=== PATIENT | male | born 1955 | race Caucasian/White ===

== ENCOUNTER → 2017-03-04 | Outpatient (CLI) | payer OTHER ==
[~2017-03-04] MED LIST: FINA5TAB4 PO; FLM4 PO; LOSA1TAB38 PO
[2017-03-04 12:23] LABS: BASO % 0.4 %; BASO ABS # 0.04 K/uL (0-0.2); COMPLETE YES; EOS % 1.4 %; HEMATOCRIT 42.7 % (42-52); IG% 0.1 %; LYMPH % 34.1 %; LYMPH ABS # 3.37 K/uL (1.2-3.4); MEAN CORPUSCULAR HEMOGLOBIN 31.4 pg (25-34); MEAN CORPUSCULAR HGB CONC 32.3 g/dl (32-36); MEAN PLATELET VOLUME 10.3 fL (7.4-10.4); MONO % 11.7 %; NEUT % 52.3 %; PLATELET COUNT 371 K/uL (130-400); WHITE BLOOD COUNT 9.89 K/uL (4.8-10.8)
[2017-03-04 12:25] LABS: ALT/SGPT 20 U/L (12-78); BLOOD UREA NITROGEN 17 mg/dl (7-18); BUN/CREATININE RATIO 19.6 (10-20); CALCIUM 8.8 mg/dl (8.5-10.1); CARBON DIOXIDE 28 mmol/L (21-32); CHLORIDE 108 mmol/L (98-107); CHOLESTEROL 188 mg/dl (0-200); CREATININE 0.84 mg/dl (0.60-1.40); GLUCOSE 93 mg/dl (70-99); SODIUM 141 mmol/L (136-145); TRIGLYCERIDES 89 mg/dl (0-150); VERY LOW DENSITY LIPOPROT CALC 18 mg/dl
[2017-03-04 12:29] LABS: ALB/GLOB RATIO 1.1 (0.9-2); ALKALINE PHOSPHATASE 77 U/L (45-117); AST/SGOT 15 U/L (15-37); CHOLESTEROL/HDL RATIO 3.5; HDL CHOLESTEROL 53 mg/dl; LDL CHOLESTEROL CALCULATED 117 mg/dl
== END | disposition home or self-care (01) ==
LOC: C.LABBFT 07:36
PROVIDERS: ATTEND Internal Medicine
DX: E78.5 Hyperlipidemia, unspecified (principal)

== ENCOUNTER → 2017-10-07 | Outpatient (CLI) | payer OTHER ==
[2017-10-07 12:37] LABS: BASO % 0.9 %; BASO ABS # 0.07 K/uL (0-0.2); COMPLETE YES; EOS % 2.4 %; HEMATOCRIT 44.7 % (42-52); IG% 0.3 %; LYMPH % 36.2 %; LYMPH ABS # 2.81 K/uL (1.2-3.4); MEAN CELL VOLUME 97.6 fL (80-100); MEAN CORPUSCULAR HEMOGLOBIN 31.4 pg (25-34); MEAN CORPUSCULAR HGB CONC 32.2 g/dl (32-36); MEAN PLATELET VOLUME 9.9 fL (7.4-10.4); MONO % 10.2 %; PLATELET COUNT 367 K/uL (130-400); RED BLOOD COUNT 4.58 M/uL (4.7-6.1); WHITE BLOOD COUNT 7.77 K/uL (4.8-10.8)
[2017-10-07 13:07] LABS: ALT/SGPT 20 U/L (12-78); AST/SGOT 11 U/L (15-37); BLOOD UREA NITROGEN 13 mg/dl (7-18); BUN/CREATININE RATIO 16.6 (10-20); CALCIUM 8.7 mg/dl (8.5-10.1); CARBON DIOXIDE 25 mmol/L (21-32); CHLORIDE 106 mmol/L (98-107); GLUCOSE 98 mg/dl (70-99); HDL CHOLESTEROL 63 mg/dl; POTASSIUM 4.7 mmol/L (3.5-5.1); SODIUM 141 mmol/L (136-145)
[2017-10-07 13:12] LABS: ALKALINE PHOSPHATASE 86 U/L (45-117); CHOLESTEROL 188 mg/dl (0-200); LDL CHOLESTEROL CALCULATED 111 mg/dl; PROSTATE SPECIFIC ANTIGEN 0.821 ng/ml (0.000-4.000); TRIGLYCERIDES 72 mg/dl (0-150); VERY LOW DENSITY LIPOPROT CALC 14 mg/dl
== END | disposition home or self-care (01) ==
LOC: C.LABBFT 07:05
PROVIDERS: ATTEND Internal Medicine
DX: I10 Essential (primary) hypertension (principal); D64.9 Anemia, unspecified; Z12.5 Encounter for screening for malignant neoplasm of prostate

== ENCOUNTER → 2018-03-13 | Outpatient (CLI) | payer OTHER ==
[2018-03-13 12:20] LABS: BASO % 0.4 %; BASO ABS # 0.04 K/uL (0-0.2); EOS % 1.8 %; HEMATOCRIT 41.2 % (42-52); HEMOGLOBIN 13.6 g/dL (14.0-18.0); IG# 0.02 K/uL (0.00-0.02); LYMPH % 32.5 %; LYMPH ABS # 3.52 K/uL (1.2-3.4); MEAN CELL VOLUME 96.5 fL (80-100); MEAN CORPUSCULAR HEMOGLOBIN 31.9 pg (25-34); MEAN PLATELET VOLUME 10.1 fL (7.4-10.4); MONO % 9.6 %; MONO ABS # 1.04 K/uL (0.11-0.59); NEUT % 55.5 %; PLATELET COUNT 370 K/uL (130-400); RED CELL DISTRIBUTION WIDTH CV 13.7 % (11.5-14.5); RED CELL DISTRIBUTION WIDTH SD 48.6 fL (36.4-46.3); WHITE BLOOD COUNT 10.82 K/uL (4.8-10.8)
[2018-03-13 12:46] LABS: ALBUMIN 3.3 gm/dl (3.4-5.0); ALT/SGPT 20 U/L (12-78); AST/SGOT 16 U/L (15-37); BLOOD UREA NITROGEN 16 mg/dl (7-18); CALCIUM 8.9 mg/dl (8.5-10.1); CARBON DIOXIDE 29 mmol/L (21-32); GLUCOSE 97 mg/dl (70-99); POTASSIUM 4.9 mmol/L (3.5-5.1); SODIUM 139 mmol/L (136-145)
[2018-03-13 12:47] LABS: ALKALINE PHOSPHATASE 81 U/L (45-117); CHOLESTEROL 187 mg/dl (0-200); LDL CHOLESTEROL CALCULATED 120 mg/dl; TOTAL PROTEIN 6.6 gm/dl (6.4-8.2)
== END | disposition home or self-care (01) ==
LOC: C.LABBFT 07:36
PROVIDERS: ATTEND Internal Medicine
DX: D64.9 Anemia, unspecified (principal); I10 Essential (primary) hypertension